=== PATIENT | female | born 1990 | race Asian ===

== ENCOUNTER 2025-01-13 10:40 | Emergency (ER) | payer OTHER ==
[~2025-01-13] VITALS: Ht 149.9 cm; Wt 64.9 kg
[2025-01-13 14:09] VITALS: BP 140/91; TEMP 97.6; O2SAT 100
== END 2025-01-13 14:16 | disposition home or self-care (01) ==
LOC: M ED 10:40 → EDBD 10:40 → M ED 14:16
DX: F41.9 Anxiety disorder, unspecified (principal); Z88.8 Allergy status to other drugs, medicaments and biological substances

== ENCOUNTER 2025-02-23 12:12 | Emergency (ER) | payer OTHER ==
[~2025-02-23] VITALS: Ht 149.9 cm; Wt 63.6 kg
[2025-02-23] MEDS ORDERED: HOME MED LIST COMPLETE! XX SCH (13:55)
[2025-02-23 14:35] VITALS: BP 135/84; TEMP 97.4; O2SAT 98
== END 2025-02-23 14:38 | disposition home or self-care (01) ==
LOC: M ED 12:12
DX: F41.0 Panic disorder [episodic paroxysmal anxiety] (principal); Z56.89 Other problems related to employment; Z88.8 Allergy status to other drugs, medicaments and biological substances